=== PATIENT | female | born 1980 | race Caucasian/White ===

== ENCOUNTER → 2020-09-12 | Outpatient (CLI) | payer OTHER ==
[~2020-09-12] MED LIST: LODINE CAP 300300 MG PO
== END ==
LOC: KOH-I 13:57
DX: R06.02 Shortness of breath (principal)
CPT/HCPCS: 71046

== ENCOUNTER → 2020-10-01 | Outpatient (CLI) | payer OTHER ==
[2020-10-01 16:08] LABS: BORDETELLA PARAPERTUSSIS Not Detected (Not Detectd); BORDETELLA PERTUSSIS Not Detected (Not Detectd); CHLAMYDIA PNEUMONIAE Not Detected (Not Detectd); CORONAVIRUS HKU1 Not Detected (Not Detectd); CORONAVIRUS NL63 Not Detected (Not Detectd); CORONAVIRUS OC43 Not Detected (Not Detectd); CORONOAVIRUS 229E Not Detected (Not Detectd); HUMAN METAPNEUMOVIRUS Not Detected (Not Detectd); HUMAN RHINOVIRUS/ENTEROVIRUS Not Detected (Not Detectd); INFLUENZA A Not Detected (Not Detectd); INFLUENZA B Not Detected (Not Detectd); MYCOPLASMA PNEUMONIAE Not Detected (Not Detectd); PARAINFLUENZA VIRUS 1 Not Detected (Not Detectd); PARAINFLUENZA VIRUS 2 Not Detected (Not Detectd); PARAINFLUENZA VIRUS 3 Not Detected (Not Detectd); PARAINFLUENZA VIRUS 4 Not Detected (Not Detectd); RESPIRATORY SYNCYTIAL VIRUS Not Detected (Not Detectd)
[2020-10-01 17:20] LABS: SARS-CoV-2 NOT DETECTED (Not Detectd)
== END ==
LOC: LAB 15:26
PROVIDERS: Physician Assistant
DX: J06.9 Acute upper respiratory infection, unspecified (principal)
CPT/HCPCS: 36415; 87633

== ENCOUNTER 2020-11-05 15:59 | Emergency (ER) | payer OTHER ==
[2020-11-05 18:23] LABS: HEMOGLOBIN 13.3 gm/dl (12.3-15.3); RED BLOOD COUNT 4.47 M/UL (4.00-5.10); WHITE BLOOD COUNT 15.7 K/UL (4.5-11.0)
[2020-11-05 18:44] LABS: BUN/CREATININE RATIO 17 (0-10)
== END 2020-11-05 21:00 | disposition home or self-care (01) ==
LOC: ER1 15:59
PROVIDERS: Student in an Organized Health Care Education/Training Program
DX: R20.0 Anesthesia of skin (principal); R51.9 Headache, unspecified; J45.909 Unspecified asthma, uncomplicated; I10 Essential (primary) hypertension; F17.210 Nicotine dependence, cigarettes, uncomplicated; Z88.8 Allergy status to other drugs, medicaments and biological substances
CPT/HCPCS: 70496; 70498; 80053; 81001; 82550; 82553; 83735; 83874; 84100; 84439; 84443; 84484; 84703; 85025; 93005; 99284; Q9967

== ENCOUNTER 2021-02-16 16:31 | Emergency (ER) | payer OTHER ==
[2021-02-16] MEDS ORDERED: LODINE CAP 300300 MG PO (20:25)
[2021-05-05] MEDS ORDERED: VRAYLAR4.5 MG PO (08:48)
[2021-05-05] MEDS ORDERED: HYDROXYZINE HCL25 MG PO (08:50)
[2021-05-05] MEDS ORDERED: LEVOTHYROXINE150 MCG PO (08:50)
[2021-05-05] MEDS ORDERED: LIOTHYRONINE SO5 MCG PO (08:52)
[2021-05-05] MEDS ORDERED: EFFEXOR XR37.5 MG PO (08:53)
[2021-05-05] MEDS ORDERED: BRINTELLIX10 MG PO (08:54)
[2021-05-05] MEDS ORDERED: XYZAL5 MG PO (08:54)
[2021-05-05] MEDS ORDERED: BUSPIRONE HCL30 MG PO ×2 (08:55→08:56)
[2021-05-05] MEDS ORDERED: OXCARBAZEPINE150 MG PO (08:56)
[2021-05-05] MEDS ORDERED: CHLORTHALIDONE25 MG PO (08:58)
[2021-05-05] MEDS ORDERED: METOPROLOL TART50 MG PO (08:59)
[2021-05-05] MEDS ORDERED: WELLBUTRIN SR150 MG PO (09:00)
[2021-05-05] MEDS ORDERED: VITAMIN D325 MC6 PO (09:02)
[2021-05-05] MEDS ORDERED: SUPER B COMPLE1 EAC1 PO (09:03)
[2021-05-05] MEDS ORDERED: VITAMIN B12-FO1 EACH PO (09:03)
[2021-05-05] MEDS ORDERED: GOODY'S EX-STR1 EAC1 PO (09:04)
== END 2021-02-16 20:38 | disposition home or self-care (01) ==
LOC: ER1 16:31
DX: M25.561 Pain in right knee (principal); F17.210 Nicotine dependence, cigarettes, uncomplicated; I10 Essential (primary) hypertension
CPT/HCPCS: 29530; 73552; 73562; 73590; 99283

== ENCOUNTER → 2021-02-25 | Outpatient (CLI) | payer OTHER ==
[~2021-02-25] MED LIST changes: +BRINTELLIX10 MG PO; +BUSPIRONE HCL30 MG PO; +CHLORTHALIDONE25 MG PO; +EFFEXOR XR37.5 MG PO; +GOODY'S EX-STR1 EAC1 PO; +HYDROXYZINE HCL25 MG PO; +LEVOTHYROXINE150 MCG PO; +LIOTHYRONINE SO5 MCG PO; +METOPROLOL TART50 MG PO; +OXCARBAZEPINE150 MG PO; +SUPER B COMPLE1 EAC1 PO; +VITAMIN B12-FO1 EACH PO; +VITAMIN D325 MC6 PO; +VRAYLAR4.5 MG PO; +WELLBUTRIN SR150 MG PO; +XYZAL5 MG PO
== END ==
LOC: EMI 08:27
DX: R20.0 Anesthesia of skin (principal); R20.2 Paresthesia of skin; G50.0 Trigeminal neuralgia
CPT/HCPCS: 70551

== ENCOUNTER → 2021-03-06 | Outpatient (CLI) | payer OTHER | LOC: KOH-I 03-04 09:45 | DX: S83.241A Other tear of medial meniscus, current injury, right knee, initial encounter (principal); M71.21 Synovial cyst of popliteal space [Baker], right knee | CPT/HCPCS: 73721 ==

== ENCOUNTER → 2021-04-25 | Outpatient (CLI) | payer OTHER ==
[~2021-04-25] MED LIST changes: -BRINTELLIX10 MG PO; -BUSPIRONE HCL30 MG PO; -CHLORTHALIDONE25 MG PO; -EFFEXOR XR37.5 MG PO; -GOODY'S EX-STR1 EAC1 PO; -HYDROXYZINE HCL25 MG PO; -LEVOTHYROXINE150 MCG PO; -LIOTHYRONINE SO5 MCG PO; -METOPROLOL TART50 MG PO; -OXCARBAZEPINE150 MG PO; -SUPER B COMPLE1 EAC1 PO; -VITAMIN B12-FO1 EACH PO; -VITAMIN D325 MC6 PO; -VRAYLAR4.5 MG PO; -WELLBUTRIN SR150 MG PO; -XYZAL5 MG PO
== END ==
LOC: SLEEP 10:29
DX: G47.30 Sleep apnea, unspecified (principal); G47.10 Hypersomnia, unspecified
CPT/HCPCS: 95810

== ENCOUNTER → 2021-05-05 | Outpatient (CLI) | payer OTHER ==
[~2021-05-05] MED LIST changes: +BRINTELLIX10 MG PO; +BUSPIRONE HCL30 MG PO; +CHLORTHALIDONE25 MG PO; +EFFEXOR XR37.5 MG PO; +GOODY'S EX-STR1 EAC1 PO; +HYDROXYZINE HCL25 MG PO; +LEVOTHYROXINE150 MCG PO; +LIOTHYRONINE SO5 MCG PO; +METOPROLOL TART50 MG PO; +OXCARBAZEPINE150 MG PO; +SUPER B COMPLE1 EAC1 PO; +VITAMIN B12-FO1 EACH PO; +VITAMIN D325 MC6 PO; +VRAYLAR4.5 MG PO; +WELLBUTRIN SR150 MG PO; +XYZAL5 MG PO
[2021-05-05 08:55] LABS: HEMOGLOBIN 14.3 gm/dl (12.3-15.3); RED BLOOD COUNT 4.62 M/UL (4.00-5.10); WHITE BLOOD COUNT 13.6 K/UL (4.5-11.0)
[2021-05-05 09:09] LABS: BUN/CREATININE RATIO 15 (0-10)
== END ==
LOC: OPSV2 08:00
PROVIDERS: Orthopaedic Surgery
DX: Z01.812 Encounter for preprocedural laboratory examination (principal); S83.241A Other tear of medial meniscus, current injury, right knee, initial encounter
CPT/HCPCS: 36415; 80048; 85025

== ENCOUNTER → 2021-05-14 | Day surgery (SDC) | payer OTHER ==
[~2021-05-14] MED LIST changes: +HYDROCODON-ACE1 EAC6 PO
== END | disposition home or self-care (01) ==
LOC: OR 06:03
DX: S83.241A Other tear of medial meniscus, current injury, right knee, initial encounter (principal); S83.281A Other tear of lateral meniscus, current injury, right knee, initial encounter; M17.11 Unilateral primary osteoarthritis, right knee; M94.261 Chondromalacia, right knee; I10 Essential (primary) hypertension; J45.909 Unspecified asthma, uncomplicated; K21.9 Gastro-esophageal reflux disease without esophagitis; E07.9 Disorder of thyroid, unspecified; F17.210 Nicotine dependence, cigarettes, uncomplicated; Z79.899 Other long term (current) drug therapy; Z88.8 Allergy status to other drugs, medicaments and biological substances; Z88.1 Allergy status to other antibiotic agents; Z20.822 Contact with and (suspected) exposure to COVID-19; Z90.49 Acquired absence of other specified parts of digestive tract
CPT/HCPCS: 84703; 94664; J0171; J1100; J2001; J2250; J2405; J2704; J3010; J3370; J7120